=== PATIENT | female | born 1960 | race Caucasian/White ===

== ENCOUNTER → 2020-12-09 | Day surgery (SDC) | payer MEDICARE, OTHER ==
[~2020-12-09] MED LIST: BUPRENO-NALOX1 EACH SL; CALCIUM 600 +1 EAC3 PO; CYMBALTA 30MG C30 MG PO; FEROSUL325 MG PO; GABAPENTIN400 MG PO; LEVETIRACETAM500 MG PO; MAG-OXIDE 400M400 MG PO; NEURONTIN300 MG PO; OXY-IR 5MG5 MG PO; PEPCID AC20 MG PO; PRILOSEC20 MG PO; PROAMATINE5 MG PO; TOPROL XL 25MG25 MG PO; VITAMIN B-121000 MC1 PO; VITAMIN D350 MCG PO
== END | disposition home or self-care (01) ==
LOC: FAS 08:13
DX: Z45.1 Encounter for adjustment and management of infusion pump (principal); F17.210 Nicotine dependence, cigarettes, uncomplicated; M54.9 Dorsalgia, unspecified; G89.29 Other chronic pain; I48.91 Unspecified atrial fibrillation; K42.9 Umbilical hernia without obstruction or gangrene; Z20.822 Contact with and (suspected) exposure to COVID-19; Z88.8 Allergy status to other drugs, medicaments and biological substances; Z82.49 Family history of ischemic heart disease and other diseases of the circulatory system; Z79.899 Other long term (current) drug therapy
CPT/HCPCS: J0690; J1644; J2704; J3010; J7120